=== PATIENT | female | born 2000 | race African-American/Black ===

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

== ENCOUNTER 2018-01-01 13:52 | Observation (INO) | payer OTHER | END 2018-01-01 15:30 | disposition home or self-care (01) | LOC: 3 SO LND 13:52 | DX: O26.892 Other specified pregnancy related conditions, second trimester (principal); R10.13 Epigastric pain; Z3A.21 21 weeks gestation of pregnancy | CPT/HCPCS: G0378; G0379 ==

== ENCOUNTER 2018-02-10 00:27 | Observation (INO) | payer OTHER ==
[2018-02-10] MEDS ORDERED: IV RINGERS,LACTATED 1000ML 1,000 ML IV (00:28)
[2018-02-10 00:57] LABS: BILIRUBIN,URINE NEGATIVE (NEG); CLARITY,URINE CLEAR; COLOR,URINE YELLOW; GLUCOSE,URINE NEGATIVE (NEG); NITRITE,URINE NEGATIVE (NEG); PROTEIN,URINE NEGATIVE (NEG-TRACE); UROBILINOGEN,URINE 0.2 mg/dL (0.2 mg/dL)
[2018-02-10 01:13] LABS: BACTERIA,URINE MODERATE /HPF (0-FEW); RBC,URINE RARE /HPF (0-2); SQUAMOUS EPITHELIAL CELL,UR MANY /LPF
[2018-02-10 01:14] LABS: BARBITURATES NEG (NEG); BENZODIAZEPINES NEG (NEG); CANNABINOIDS POS (NEG); COCAINE NEG (NEG); METHADONE NEG (NEG); OPIATES NEG (NEG); PHENCYCLIDINE NEG (NEG)
[2018-02-10 01:16] LABS: AMPHETAMINE/METHAMPHETAMINE NEG (NEG); ETHANOL, URINE NEG (NEG)
[2018-02-10] MEDS: ACETAMINOPHEN 500 MG TABLET PO (02:03)
== END 2018-02-10 02:00 | disposition home or self-care (01) ==
LOC: 3 SO LND 00:27
DX: O26.892 Other specified pregnancy related conditions, second trimester (principal); R10.2 Pelvic and perineal pain; Z3A.24 24 weeks gestation of pregnancy
CPT/HCPCS: 80307; 81001; 87086; G0378; G0379

== ENCOUNTER 2018-02-11 12:10 | Observation (INO) | payer OTHER ==
[2018-02-11] MEDS ORDERED: IV RINGERS,LACTATED 1000ML 1,000 ML IV (12:34)
[2018-02-11 12:52] LABS: BILIRUBIN,URINE NEGATIVE (NEG); CLARITY,URINE CLEAR; GLUCOSE,URINE NEGATIVE (NEG); NITRITE,URINE NEGATIVE (NEG); PROTEIN,URINE NEGATIVE (NEG-TRACE)
[2018-02-11 12:57] LABS: AMPHETAMINE/METHAMPHETAMINE NEG (NEG); BARBITURATES NEG (NEG); BENZODIAZEPINES NEG (NEG); CANNABINOIDS POS (NEG); COCAINE NEG (NEG); ETHANOL, URINE NEG (NEG); METHADONE NEG (NEG); OPIATES NEG (NEG); PHENCYCLIDINE NEG (NEG)
[2018-02-11 13:02] LABS: COLOR,URINE YELLOW
[2018-02-11 13:03] LABS: BACTERIA,URINE MANY /HPF (0-FEW); SQUAMOUS EPITHELIAL CELL,UR MANY /LPF
[2018-02-11 14:02] LABS: ADD MAN DIFF? NO
[2018-02-11 14:06] LABS: BASO % 0 % (0-3); EOS % 0 % (0-3); HEMATOCRIT 31.4 % (36.0-47.0); HEMOGLOBIN 10.9 g/dL (12.0-15.5); LYMPH # 2.4 x10^3/uL (1.0-4.8); LYMPH % 38 % (24-48); MEAN CORPUSCULAR HEMOGLOBIN 32 pg (25-35); MEAN CORPUSCULAR HGB CONC 35 g/dL (31-37); MEAN CORPUSCULAR VOLUME 93 fL (79-100); MONO # 0.6 x10^3/uL (0.0-1.1); MONO % 9 % (0-9); NEUT # 3.2 x10^3uL (1.8-7.7); NEUT % 52 % (31-73); PLATELET COUNT 198 x10^3/uL (140-400); RED BLOOD COUNT 3.37 x10^6/uL (3.50-5.40); RED CELL DISTRIBUTION WIDTH 13.4 % (11.5-14.5); WHITE BLOOD COUNT 6.2 x10^3/uL (4.0-11.0)
[2018-02-11] MEDS: ACETAMINOPHEN 500 MG TABLET PO (14:58)
== END 2018-02-11 15:42 | disposition home or self-care (01) ==
LOC: 3 SO LND 12:10
DX: O26.893 Other specified pregnancy related conditions, third trimester (principal); R10.9 Unspecified abdominal pain; Z3A.29 29 weeks gestation of pregnancy
CPT/HCPCS: 36415; 76815; 80307; 81001; 85025; 86850; 86900; 86901; 87086; G0378; G0379

== ENCOUNTER 2018-03-19 09:08 | Observation (INO) | payer OTHER ==
[2018-03-19] MEDS ORDERED: IV RINGERS,LACTATED 1000ML 1,000 ML IV (09:27)
[2018-03-19 10:00] LABS: BILIRUBIN,URINE NEGATIVE (NEG); CLARITY,URINE CLEAR; COLOR,URINE YELLOW; GLUCOSE,URINE NEGATIVE (NEG); NITRITE,URINE NEGATIVE (NEG); PH,URINE 6.5; PROTEIN,URINE NEGATIVE (NEG-TRACE); UROBILINOGEN,URINE 0.2 mg/dL (0.2 mg/dL)
[2018-03-19 10:25] LABS: BACTERIA,URINE FEW /HPF (0-FEW); RBC,URINE 0 /HPF (0-2); SQUAMOUS EPITHELIAL CELL,UR FEW /LPF
== END 2018-03-19 11:35 | disposition home or self-care (01) ==
LOC: 3 SO LND 09:08
DX: O46.93 Antepartum hemorrhage, unspecified, third trimester (principal); O26.893 Other specified pregnancy related conditions, third trimester; L29.9 Pruritus, unspecified; Z3A.31 31 weeks gestation of pregnancy
CPT/HCPCS: 81001; 87086; 87491; 87591; G0378; G0379

== ENCOUNTER 2018-03-19 11:38 | Emergency (ER) | payer OTHER ==
[2018-03-19 12:18] LABS: BILIRUBIN,URINE NEGATIVE (NEG); CLARITY,URINE CLEAR; COLOR,URINE YELLOW; GLUCOSE,URINE NEGATIVE (NEG); NITRITE,URINE NEGATIVE (NEG); PROTEIN,URINE NEGATIVE (NEG-TRACE); UROBILINOGEN,URINE 0.2 mg/dL (0.2 mg/dL)
[2018-03-19 12:32] LABS: BACTERIA,URINE MOD /HPF (0-FEW); SQUAMOUS EPITHELIAL CELL,UR FEW /LPF; WBC,URINE 20-40 /HPF (0-4)
[2018-03-19] MEDS: AZITHROMYCIN 250 MG TABLET. PO (13:19)
[2018-03-20 14:20] LABS: CHLAMYDIA PROBE Positive (Negative); GC PROBE Negative (Negative)
== END 2018-03-19 13:46 | disposition home or self-care (01) ==
LOC: ER 13:46
DX: B37.49 Other urogenital candidiasis (principal); F12.10 Cannabis abuse, uncomplicated; Z88.1 Allergy status to other antibiotic agents; Z88.4 Allergy status to anesthetic agent; Z88.8 Allergy status to other drugs, medicaments and biological substances; Z91.040 Latex allergy status
CPT/HCPCS: 81001; 87491; 87591; 99284; Q0111; Q0144

== ENCOUNTER 2018-05-13 16:17 | Observation (INO) | payer OTHER ==
[2018-03-19 12:09] VITALS: BP 98/69
[~2018-05-13 16:17] MED LIST: METR500T PO; MICO44CM VG; NITR100C62 PO
[2018-05-13 16:55] LABS: BILIRUBIN,URINE NEGATIVE (NEG); CLARITY,URINE CLEAR; COLOR,URINE YELLOW; NITRITE,URINE NEGATIVE (NEG); PROTEIN,URINE NEGATIVE (NEG-TRACE); UROBILINOGEN,URINE 0.2 mg/dL (0.2 mg/dL)
[2018-05-13 17:02] LABS: AMORPHOUS SEDIMENT,UR PRESENT /HPF; BACTERIA,URINE FEW /HPF (0-FEW); RBC,URINE 0 /HPF (0-2); SQUAMOUS EPITHELIAL CELL,UR MOD /LPF
== END 2018-05-13 17:24 | disposition home or self-care (01) ==
LOC: 3 SO LND 16:17
PROVIDERS: ADMIT Obstetrics & Gynecology; ATTEND Obstetrics & Gynecology
DX: O26.893 Other specified pregnancy related conditions, third trimester (principal); R10.31 Right lower quadrant pain; Z3A.37 37 weeks gestation of pregnancy
CPT/HCPCS: 81001; 87086; G0378; G0379

== ENCOUNTER 2019-03-09 10:04 | Emergency (ER) | payer OTHER ==
[~2019-03-09] VITALS: Ht 157.5 cm; Wt 75.7 kg
[2019-03-09 10:15] VITALS: BP 110/55
[2019-03-09] MEDS ORDERED: diphenhydrAMINE HCL 25 MG CAPSULE PO ONE (10:45)
[2019-03-09] MEDS ORDERED: predniSONE 10 MG TABLET PO ONE (10:45)
[2019-03-09] MEDS ORDERED: cefTRIAXone IM 250 MG VIAL IM ONE (10:45)
[2019-03-09] MEDS ORDERED: metroNIDAZOLE 500 MG TABLET PO ONE (10:45)
[2019-03-09] MEDS ORDERED: AZITHROMYCIN 250 MG TABLET. PO ONE (10:45)
[2019-03-09] MEDS ORDERED: FLUCONAZOLE 100 MG TABLET. PO ONE (11:00)
[2019-03-09 11:01] LABS: BILIRUBIN,URINE SMALL (NEG); CLARITY,URINE CLEAR; COLOR,URINE YELLOW; NITRITE,URINE NEGATIVE (NEG); PROTEIN,URINE NEGATIVE (NEG-TRACE); UROBILINOGEN,URINE 0.2 mg/dL (0.2 mg/dL)
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
[2019-03-09 11:23] LABS: SQUAMOUS EPITHELIAL CELL,UR FEW /LPF; WBC,URINE OCC /HPF (0-4)
[2019-03-09 11:53] LABS: BACTERIA,URINE 0 /HPF (0-FEW)
[2019-03-09] MEDS ORDERED: ONDANSETRON ODT 4 MG TAB.RAPDIS. PO ONE (12:00)
[2019-03-12 16:13] LABS: GC PROBE Negative (Negative)
== END 2019-03-09 12:09 | disposition home or self-care (01) ==
LOC: ER 10:04
DX: B37.3 Candidiasis of vulva and vagina (principal); Z20.2 Contact with and (suspected) exposure to infections with a predominantly sexual mode of transmission; Z88.1 Allergy status to other antibiotic agents; Z88.4 Allergy status to anesthetic agent; Z91.040 Latex allergy status
CPT/HCPCS: 81001; 81025; 87491; 87591; 96372; 99284; J0696; J7512; Q0111; Q0144; Q0162; Q0163

== ENCOUNTER 2019-10-07 13:21 | Emergency (ER) | payer OTHER ==
[~2019-10-07] VITALS: Ht 157.5 cm; Wt 81.6 kg
[2019-10-07 14:46] VITALS: BP 109/57
[2019-10-07] MEDS: DEXAMETHASONE 4 MG TABLET PO STA (15:24)
[2019-10-07] MEDS ORDERED: ONDA4TAB12 PO (15:42)
--- NOTE | 2019-10-07 15:42 | PHYS DOC ---
Past Medical History Past Medical History: No Pertinent History, STD Past Surgical History: No Surgical History Alcohol Use: None Drug Use: Marijuana Adult General Chief Complaint Chief Complaint: FLU SYMPTOM HPI HPI Patient is a 19 year old female who presents with headache, loss of appetite, nausea, vomiting, sore throat, runny nose, cough that started a little over 1 week ago. The patient rates her pain as 6 out of 10 in severity and sharp. Review of Systems Review of Systems Constitutional: Reports fever or chills and body aches. Eyes: Denies change in visual acuity, redness, or eye pain [] HENT: Reports nasal congestion, sore throat, and runny nose. Respiratory: Reports cough. Denies shortness of breath. Cardiovascular: No additional information not addressed in HPI [] GI: Reports nausea and vomiting. Denies abdominal pain, bloody stools or diarrhea [] : Denies dysuria or hematuria [] Musculoskeletal: Denies back pain or joint pain [] Integument: Denies rash or skin lesions [] Neurologic: Reports headache, denies focal weakness or sensory changes [] Endocrine: Denies polyuria or polydipsia [] Complete systems were reviewed and found to be within normal limits, except as documented in this note. Current Medications Current Medications Current Medications Medications (Trade) Dose Ordered Sig/Joshua Start Time Stop Time Status Last Admin Dose Admin Dexamethasone (Decadron) 10 mg 1X STAT 10/07/19 14:57 10/07/19 14:58 DC 10/07/19 15:24 10 MG Allergies Allergies Allergies Coded Allergies Type Severity Reaction Last Updated Verified amoxicillin Allergy Severe "MY NECK SWELLS" 01/08/17 Yes Latex, Natural Rubber Allergy Intermediate RASH 01/08/17 Yes procaine Allergy Intermediate SWELLING 05/29/14 Yes Physical Exam Physical Exam Constitutional: Well developed, well nourished, no acute distress, non-toxic appearance. [] HENT: Normocephalic, atraumatic, bilateral external ears normal, oropharynx moist, tonsils are 2+/4 with no oral exudates, nose normal. [] Eyes: PERRLA, EOMI, conjunctiva normal, no discharge. [] Neck: Normal range of motion, no tenderness, supple, no stridor. [] Cardiovascular:Heart rate regular rhythm, no murmur [] Lungs & Thorax: Bilateral breath sounds clear to auscultation [] Skin: Warm, dry, no erythema, no rash. [] Neurologic: Alert and oriented X 3, normal motor function, normal sensory function, no focal deficits noted. [] Psychologic: Affect normal, judgement normal, mood normal. [] Current Patient Data Vital Signs Vital Signs Date Time Temp Pulse Resp B/P (MAP) Pulse Ox O2 Delivery O2 Flow Rate FiO2 10/07/19 14:46 97.8 75 14 109/57 (74) 98 Room Air 97.8 EKG EKG [] Radiology/Procedures Radiology/Procedures [] Course & Med Decision Making Course & Med Decision Making Pertinent Labs and Imaging studies reviewed. (See chart for details) The patient appears to have the Flu clinically. Discussed with patient the importance of drinking plenty of fluids. I also discussed the importance of rest. It was discussed with the patient that she is contagious and to stay away from others until it has been a week since the start of her symptoms. Discussed with the patient that she can take Zyrtec per label instructions for runny nose. Also discussed the proper control of fever by rotating Tylenol and Ibuprofen at home. Will give the patient Decadron in the ER for symptom control. Will also prescribe Zofran for nausea. Strep was negative. Dragon Disclaimer Dragon Disclaimer This electronic medical record was generated, in whole or in part, using a voice recognition dictation system. Departure Departure Impression: Primary Impression: Viral syndrome Disposition: 01 HOME, SELF-CARE Condition: STABLE Referrals: NO PCP (PCP) Patient Instructions: Viral Syndrome Additional Instructions: Thank you for visiting [facility]. We appreciate you trusting us with your care. If any additional problems come up don't hesitate to return to visit us. Please follow up with your primary care provider so they can plan additional care if needed and know about the problem that you had. If symptoms worsen come back to the Emergency Department. Any concerning symptoms that start such as chest pain, shortness of air, weakness or numbness on one side of the body, running high fevers or any other concerning symptoms return to the ER. Please fill your medications at any pharmacy and follow the prescription instructions. Please drink plenty of fluids. If unable to keep fluids down please return to ER. Please get Tylenol and Ibuprofen over the counter. Give each medication every 6 hours as directed by the medication labels. In order to utilize the peak of the medications stagger the medications to where the child is getting one of the medications every 3 hours. For example if you give Ibuprofen at 3 PM, you then give Tylenol at 6 PM and Ibuprofen again at 9 PM, and then Tylenol at midnight. Please get Zyrtec over the counter and take per label instructions for runny nose. Scripts Ondansetron (ONDANSETRON ODT) 4 Mg Tab.rapdis 1 TAB PO PRN Q6-8HRS PRN for NAUSEA, #16 TAB Prov: SELMA TOLENTINO APRN 10/07/19 SELMA TOLENTINO APRN Oct 07, 2019 15:42
== END 2019-10-07 15:57 | disposition home or self-care (01) ==
LOC: ER 13:21
DX: B34.9 Viral infection, unspecified (principal); R11.2 Nausea with vomiting, unspecified; Z88.1 Allergy status to other antibiotic agents; Z88.4 Allergy status to anesthetic agent; Z91.040 Latex allergy status
CPT/HCPCS: 87070; 87880; 99283; J8540

== ENCOUNTER 2019-10-22 13:24 | Emergency (ER) | payer OTHER ==
[~2019-10-22] VITALS: Ht 157.5 cm; Wt 79.5 kg
[~2019-10-22 13:24] MED LIST changes: +ONDA4TAB12 PO
[2019-10-22 14:23] VITALS: BP 147/88
[2019-10-22 14:27] LABS: BILIRUBIN,URINE NEGATIVE (NEG); CLARITY,URINE CLOUDY; COLOR,URINE YELLOW; NITRITE,URINE NEGATIVE (NEG); PH,URINE 6.5; PROTEIN,URINE NEGATIVE (NEG-TRACE); UROBILINOGEN,URINE 0.2 mg/dL (0.2 mg/dL)
[2019-10-22 14:35] LABS: BACTERIA,URINE 0 /HPF (0-FEW); SQUAMOUS EPITHELIAL CELL,UR MOD /LPF
[2019-10-22] MEDS ORDERED: AZITHROMYCIN 250 MG TABLET. PO ONE (15:00)
[2019-10-22] MEDS ORDERED: cefTRIAXone IM 250 MG VIAL IM ONE (15:00)
[2019-10-22] MEDS ORDERED: MICO24CM5 VG (15:11)
--- NOTE | 2019-10-22 15:11 | PHYS DOC ---
Past Medical History Past Medical History: STD, Other Additional Past Medical Histor: ECZEMA Past Surgical History: No Surgical History Additional Information: BL[employer]DS Alcohol Use: None Drug Use: Marijuana Adult General Chief Complaint Chief Complaint: VAGINAL PROBLEM HPI HPI Patient is a 19 year old female who presents with history days ago she had intercourse and ever since and she's had an irritated vaginal area with itching and burning. She denies dysuria. States there is no smell. She is having white vaginal discharge. She states that she was like to be checked and treated for sexual transmitted diseases today. Review of Systems Review of Systems : Vaginal itching, irritation. Denies dysuria or hematuria [] All other systems were reviewed and found to be within normal limits, except as documented in this note. Current Medications Current Medications Current Medications Medications (Trade) Dose Ordered Sig/Joshua Start Time Stop Time Status Last Admin Dose Admin Azithromycin (Zithromax) 1,000 mg 1X ONCE 10/22/19 15:00 10/22/19 15:01 DC Ceftriaxone Sodium (Rocephin Im) 250 mg 1X ONCE 10/22/19 15:00 10/22/19 15:01 DC Allergies Allergies Allergies Coded Allergies Type Severity Reaction Last Updated Verified amoxicillin Allergy Severe "MY NECK SWELLS" 10/22/19 Yes Latex, Natural Rubber Allergy Intermediate RASH 01/08/17 Yes procaine Allergy Intermediate SWELLING 05/29/14 Yes Physical Exam Physical Exam Constitutional: Well developed, well nourished, no acute distress, non-toxic appearance. [] HENT: Normocephalic, atraumatic, bilateral external ears normal, oropharynx moist, no oral exudates, nose normal. [] Eyes: PERRLA, EOMI, conjunctiva normal, no discharge. [] Neck: Normal range of motion, no tenderness, supple, no stridor. [] Cardiovascular:Heart rate regular rhythm, no murmur [] Lungs & Thorax: Bilateral breath sounds clear to auscultation [] Abdomen: Bowel sounds normal, soft, no tenderness, no masses, no pulsatile masses. [] Skin: Warm, dry, vaginal mucosa erythema or irritation, no rash. [] Back: No tenderness, no CVA tenderness. [] Extremities: No tenderness, no cyanosis, no clubbing, ROM intact, no edema. [] Neurologic: Alert and oriented X 3, normal motor function, normal sensory function, no focal deficits noted. [] Psychologic: Affect normal, judgement normal, mood normal. [] Current Patient Data Vital Signs Vital Signs Date Time Temp Pulse Resp B/P (MAP) Pulse Ox O2 Delivery O2 Flow Rate FiO2 10/22/19 14:23 98.2 86 18 147/88 (107) 96 Room Air 98.2 Lab Values Laboratory Tests Test 10/22/19 14:18 10/22/19 14:19 Urine Collection Type Unknown Urine Color Yellow Urine Clarity Cloudy Urine pH 6.5 Urine Specific [place] 1.025 Urine Protein Negative mg/dL (NEG-TRACE) Urine Glucose (UA) Negative mg/dL (NEG) Urine Ketones (Stick) Negative mg/dL (NEG) Urine Blood Negative (NEG) Urine Nitrite Negative (NEG) Urine Bilirubin Negative (NEG) Urine Urobilinogen Dipstick 0.2 mg/dL (0.2 mg/dL) Urine Leukocyte Esterase Small (NEG) Urine RBC 1-2 /HPF (0-2) Urine WBC 1-4 /HPF (0-4) Urine Squamous Epithelial Cells Mod /LPF Urine Bacteria 0 /HPF (0-FEW) Urine Mucus Mod /LPF POC Urine HCG, Qualitative Hcg negative (Negative) Microbiology 10/22/19 Wet Prep - Final, Complete EKG EKG [] Radiology/Procedures Radiology/Procedures [] Course & Med Decision Making Course & Med Decision Making Alert and oriented. Speaks in full conditions. Vital signs within normal limits. Abdomen soft and nontender. Skin pink warm and dry. Patient refuses azithromycin and Rocephin. Pelvic Exam: Merchandise Presentation Manager present Abdomen: Nontender External Genitalia: Normal Skin, some redness or irritation Speculum: Normal vaginal mucosa, White cervical discharge Bimanual: No adnexal masses or tenderness, No CMT Dragon Disclaimer Dragon Disclaimer This electronic medical record was generated, in whole or in part, using a voice recognition dictation system. Departure Departure Impression: Primary Impression: Vaginal yeast infection Disposition: 01 HOME, SELF-CARE Condition: STABLE Referrals: NO PCP (PCP) Patient Instructions: Medical Screening Exam Additional Instructions: Take medication as prescribed. Follow up with a political science faculty member or primary care if needed. Scripts Miconazole Nitrate (MONISTAT 3) 24 Gm Cmb.pf.crm 1 APPFUL VG QHS for 3 Days, #24 GM 0 Refills Prov: GERRY CAMPUZANO APRN 10/22/19 GERRY CAMPUZANO APRN Oct 22, 2019 15:11
[2019-10-23 19:09] LABS: GC PROBE Negative (Negative)
== END 2019-10-22 15:32 | disposition home or self-care (01) ==
LOC: ER 13:24
DX: N76.0 Acute vaginitis (principal); B96.89 Other specified bacterial agents as the cause of diseases classified elsewhere; L29.2 Pruritus vulvae; F12.90 Cannabis use, unspecified, uncomplicated; F17.200 Nicotine dependence, unspecified, uncomplicated; Z88.1 Allergy status to other antibiotic agents; Z91.040 Latex allergy status; Z88.4 Allergy status to anesthetic agent
CPT/HCPCS: 81001; 81025; 87086; 87491; 87591; 99284; Q0111

== ENCOUNTER 2020-03-04 19:11 | Emergency (ER) | payer SELFPAY ==
[~2020-03-04] VITALS: Ht 157.5 cm; Wt 81.8 kg
[~2020-03-04 19:11] MED LIST changes: +MICO24CM5 VG
[2020-03-04 19:16] VITALS: BP 132/77
[2020-03-04 20:15] LABS: BILIRUBIN,URINE NEGATIVE (NEG); CLARITY,URINE CLEAR; COLOR,URINE YELLOW; NITRITE,URINE NEGATIVE (NEG); PROTEIN,URINE 30 mg/dL (NEG-TRACE); UROBILINOGEN,URINE 0.2 mg/dL (0.2 mg/dL)
[2020-03-04] MEDS ORDERED: ACETAMINOPHEN 500 MG TABLET PO ONE (20:15)
[2020-03-04 20:20] LABS: SQUAMOUS EPITHELIAL CELL,UR MOD /LPF
[2020-03-04 20:21] LABS: BACTERIA,URINE FEW /HPF (0-FEW)
[2020-03-04] MEDS ORDERED: IV NORMAL SALINE 1000ML BAG 1,000 ML IV SCH (20:21)
[2020-03-04 20:25] LABS: YEAST,URINE PRESENT /HPF
[2020-03-04] MEDS ORDERED: KETOROLAC 30 MG/ML VIAL. IVP ONE (20:30)
[2020-03-04 20:58] LABS: BASO # 0.1 x10^3/uL (0.0-0.2); BASO % 1 % (0-3); EOS % 0 % (0-3); HEMATOCRIT 38.6 % (36.0-47.0); LYMPH # 1.9 x10^3/uL (1.0-4.8); LYMPH % 19 % (24-48); MEAN CORPUSCULAR HEMOGLOBIN 31 pg (25-35); MEAN CORPUSCULAR HGB CONC 34 g/dL (31-37); MEAN CORPUSCULAR VOLUME 91 fL (79-100); MONO # 1.2 x10^3/uL (0.0-1.1); MONO % 12 % (0-9); NEUT # 6.7 x10^3/uL (1.8-7.7); NEUT % 68 % (31-73); PLATELET COUNT 225 x10^3/uL (140-400); RED BLOOD COUNT 4.24 x10^6/uL (3.50-5.40); RED CELL DISTRIBUTION WIDTH 13.8 % (11.5-14.5); WHITE BLOOD COUNT 9.8 x10^3/uL (4.0-11.0)
[2020-03-04 21:06] LABS: CALCIUM 8.8 mg/dL (8.5-10.1); GFR 84.7; POTASSIUM 4.3 mmol/L (3.5-5.1)
[2020-03-04 21:12] LABS: ALBUMIN 3.3 g/dL (3.4-5.0); ALBUMIN/GLOBULIN RATIO 0.7 (1.0-1.7); TOTAL BILIRUBIN 0.3 mg/dL (0.2-1.0); TOTAL PROTEIN 8.1 g/dL (6.4-8.2)
[2020-03-04] MEDS ORDERED: FLUCONAZOLE 100 MG TABLET. PO ONE (21:15)
[2020-03-04] MEDS ORDERED: AZIT250T PO (21:23)
[2020-03-04] MEDS ORDERED: FLUC150T PO (21:23)
--- NOTE | 2020-03-04 21:23 | PHYS DOC ---
Past Medical History Past Medical History: STD, Other Additional Past Medical Histor: ECZEMA,TONSILLS,BV Past Surgical History: No Surgical History Smoking Status: Current Every Day Smoker Alcohol Use: None Drug Use: Marijuana General Adult EDM: Chief Complaint: SORE THROAT HPI: HPI: Patient is a 19 year old female who presents with complaint of 4-day history of sore throat and also vaginal discharge with itching for the last week. Patient states the discharge is white in color and clumpy. She denies any chest pain or shortness of breath. Patient is not aware of any fever. Patient states that it is very painful to swallow and states that she sees white spots on her tonsils. [] Review of Systems: Review of Systems: Constitutional: Denies fever or chills. [] HENT: Complains of sore throat. [] Respiratory: Denies cough or shortness of breath. [] Cardiovascular: Denies chest pain or edema. [] : Denies dysuria. Complains of white clumpy vaginal discharge [] Integument: Denies rash. [] Neurologic: Denies headache, focal weakness or sensory changes. [] Heart Score: Risk Factors: Risk Factors: DM, Current or recent (<one month) smoker, HTN, HLP, family history of CAD, obesity. Risk Scores: Score 0 - 3: 2.5% MACE over next 6 weeks - Discharge Home Score 4 - 6: 20.3% MACE over next 6 weeks - Admit for Clinical Observation Score 7 - 10: 72.7% MACE over next 6 weeks - Early Invasive Strategies Current Medications: Current Medications Medications (Trade) Dose Ordered Sig/[facility] Start Time Stop Time Status Last Admin Dose Admin Acetaminophen (Tylenol) 1,000 mg 1X ONCE 03/04/20 20:15 03/04/20 20:16 DC 03/04/20 20:22 1,000 MG Ceftriaxone Sodium (Rocephin) 1 gm 1X ONCE 03/04/20 21:15 03/04/20 21:16 UNV Fluconazole (Diflucan) 150 mg 1X ONCE 03/04/20 21:15 03/04/20 21:16 UNV Ketorolac Tromethamine (Toradol 30mg Vial) 30 mg 1X ONCE 03/04/20 20:30 03/04/20 20:31 DC 03/04/20 20:54 30 MG Sodium Chloride 1,000 ml @ 1,000 mls/hr Q1H 03/04/20 20:21 03/04/20 21:20 03/04/20 20:54 1,000 MLS/HR Allergies: Allergies: Allergies Coded Allergies Type Severity Reaction Last Updated Verified amoxicillin Allergy Severe "MY NECK SWELLS" 10/22/19 Yes Latex, Natural Rubber Allergy Intermediate RASH 01/08/17 Yes procaine Allergy Intermediate SWELLING 05/29/14 Yes Physical Exam: PE: Constitutional: Well developed, well nourished, no acute distress, non-toxic appearance. [] HENT: Normocephalic, atraumatic, bilateral external ears normal, there is pharyngeal erythema with tonsillar swelling and exudates bilaterally. [] Cardiovascular: Regular rate and rhythm [] Lungs & Thorax: Bilateral breath sounds clear to auscultation [] Skin: Warm, dry, no erythema, no rash. [] Neurologic: Alert and oriented X 3, normal motor function, normal sensory function, no focal deficits noted. [] Current Patient Data: Labs: Laboratory Tests Test 03/04/20 19:40 03/04/20 19:45 03/04/20 20:50 Urine Collection Type Unknown Urine Color Yellow Urine Clarity Clear Urine pH 6.0 (<5.0-8.0) Urine Specific [place] 1.020 (1.000-1.030) Urine Protein 30 mg/dL (NEG-TRACE) Urine Glucose (UA) Negative mg/dL (NEG) Urine Ketones (Stick) Negative mg/dL (NEG) Urine Blood Moderate (NEG) Urine Nitrite Negative (NEG) Urine Bilirubin Negative (NEG) Urine Urobilinogen Dipstick 0.2 mg/dL (0.2 mg/dL) Urine Leukocyte Esterase Small (NEG) Urine RBC 11-20 /HPF (0-2) Urine WBC 11-20 /HPF (0-4) Urine Squamous Epithelial Cells Mod /LPF Urine Bacteria Few /HPF (0-FEW) Urine Mucus Marked /LPF Urine Yeast Present /HPF POC Urine HCG, Qualitative Hcg negative (Negative) White Blood Count 9.8 x10^3/uL (4.0-11.0) Red Blood Count 4.24 x10^6/uL (3.50-5.40) Hemoglobin 13.0 g/dL (12.0-15.5) Hematocrit 38.6 % (36.0-47.0) Mean Corpuscular Volume 91 fL (79-100) Mean Corpuscular Hemoglobin 31 pg (25-35) Mean Corpuscular Hemoglobin Concent 34 g/dL (31-37) Red Cell Distribution Width 13.8 % (11.5-14.5) Platelet Count 225 x10^3/uL (140-400) Neutrophils (%) (Auto) 68 % (31-73) Lymphocytes (%) (Auto) 19 % (24-48) L Monocytes (%) (Auto) 12 % (0-9) H Eosinophils (%) (Auto) 0 % (0-3) Basophils (%) (Auto) 1 % (0-3) Neutrophils # (Auto) 6.7 x10^3/uL (1.8-7.7) Lymphocytes # (Auto) 1.9 x10^3/uL (1.0-4.8) Monocytes # (Auto) 1.2 x10^3/uL (0.0-1.1) H Eosinophils # (Auto) 0.0 x10^3/uL (0.0-0.7) Basophils # (Auto) 0.1 x10^3/uL (0.0-0.2) Sodium Level 136 mmol/L (136-145) Potassium Level 4.3 mmol/L (3.5-5.1) Chloride Level 101 mmol/L (98-107) Carbon Dioxide Level 25 mmol/L (21-32) Anion Gap 10 (6-14) Blood Urea Nitrogen 7 mg/dL (7-20) Creatinine 1.0 mg/dL (0.6-1.0) Estimated GFR (Cockcroft-Gault) 84.7 BUN/Creatinine Ratio 7 (6-20) Glucose Level 85 mg/dL (70-99) Calcium Level 8.8 mg/dL (8.5-10.1) Total Bilirubin 0.3 mg/dL (0.2-1.0) Aspartate Amino Transferase (AST) 18 U/L (15-37) Alanine Aminotransferase (ALT) 11 U/L (14-59) L Alkaline Phosphatase 81 U/L (46-116) Total Protein 8.1 g/dL (6.4-8.2) Albumin 3.3 g/dL (3.4-5.0) L Albumin/Globulin Ratio 0.7 (1.0-1.7) L Laboratory Tests 03/04/20 20:50 Laboratory Tests 03/04/20 20:50 Vital Signs: Vital Signs Date Time Temp Pulse Resp B/P (MAP) Pulse Ox O2 Delivery O2 Flow Rate FiO2 03/04/20 19:16 102.8 86 22 132/77 (95) 99 Room Air 102.8 EKG: EKG: [] Radiology/Procedures: Radiology/Procedures: [] Course & Med Decision Making: Course & Med Decision Making Pertinent Labs and Imaging studies reviewed. (See chart for details) [] Dragon Disclaimer: DragEtaoshi Disclaimer: This electronic medical record was generated, in whole or in part, using a voice recognition dictation system. Departure Departure Impression: Primary Impression: Tonsillitis Additional Impression: Vaginal yeast infection Disposition: 01 HOME, SELF-CARE Condition: STABLE Referrals: NO PCP (PCP) Patient Instructions: Tonsillitis, Vaginitis, Monilial Scripts Fluconazole (DIFLUCAN) 150 Mg Tablet 1 TAB PO ONCE, #1 TAB Prov: ADEN LENZ Jr. DO 03/04/20 Azithromycin (ZITHROMAX) 250 Mg Tablet 1 PKG PO UD, #6 TAB Prov: ADEN LENZ Jr. DO 03/04/20 ADEN LENZ Jr. DO Mar 04, 2020 21:23
[2020-03-04] MEDS ORDERED: cefTRIAXone IV Push 1 GM VIAL. IVP ONE (21:30)
== END 2020-03-04 21:55 | disposition home or self-care (01) ==
LOC: ER 19:11
DX: J03.90 Acute tonsillitis, unspecified (principal); B37.3 Candidiasis of vulva and vagina; F17.200 Nicotine dependence, unspecified, uncomplicated; Z88.1 Allergy status to other antibiotic agents; Z88.4 Allergy status to anesthetic agent; Z91.040 Latex allergy status
CPT/HCPCS: 36415; 80053; 81001; 81025; 85025; 87070; 87086; 87880; 96374; 96375; 99284; J0696; J1885; J7030

== ENCOUNTER 2021-03-20 21:15 | Emergency (ER) | payer OTHER ==
[~2021-03-20] VITALS: Ht 157.5 cm; Wt 90.9 kg
[~2021-03-20 21:15] MED LIST changes: +AZIT250T PO; +FLUC150T PO
[2021-03-20 22:25] LABS: BILIRUBIN,URINE NEGATIVE (NEG); CLARITY,URINE CLEAR; COLOR,URINE YELLOW; NITRITE,URINE NEGATIVE (NEG); PH,URINE 5.5 (<5.0-8.0); PROTEIN,URINE NEGATIVE (NEG-TRACE); UROBILINOGEN,URINE 0.2 mg/dL (0.2 mg/dL)
--- NOTE | 2021-03-20 22:28 | EKG ---
[facility] [address] [place] [address] Test Date: 2021-03-20 Test Time: 21:35:23 Pat Name: MAGALY PALMER Department: Room: Gender: F Crosscutter: : 2000 Requested By: INA LITTLE Order Number: [id number] Reading MD: Measurements Intervals [place] Rate: 88 P: 0 HI: 174 QRS: 46 QRSD: 90 T: 22 QT: 342 QTc: 417 Interpretive Statements SINUS RHYTHM NORMAL ECG RI6.02 No previous ECG available for comparison
[2021-03-20 22:32] LABS: BACTERIA,URINE 0 /HPF (0-FEW); WBC,URINE 0 /HPF (0-4)
[2021-03-20 22:48] VITALS: BP 116/57
[2021-03-20] MEDS ORDERED: AZIT250T PO (22:52)
--- NOTE | 2021-03-20 22:53 | PHYS DOC ---
Past Medical History Past Medical History: STD, Other Additional Past Medical Histor: ECZEMA,TONSILLS,BV Past Surgical History: No Surgical History Smoking Status: Current Every Day Smoker Alcohol Use: None Drug Use: Marijuana General Adult EDM: Chief Complaint: MULTIPLE COMPLAINTS HPI: HPI: Patient is a 20 year old female presents with a chief complaint of sinus congestion with cough and sputum production. Patient states she has some chest discomfort with her cough. Symptoms started today. Patient also complains of vaginal spotting. Patient is on control and has not had a regular. For 2 years. On exam patient is in no acute distress oxygen saturation is 100%. Review of Systems: Review of Systems: Review of systems: Constitutional symptoms- No fever, no chills. Eyes- No Discharge, No Visual Loss Respiratory symptoms- No shortness of breath, No wheezing, No Dyspnea on Exertion positive cough Cardiovascular Systems; No chest pain, No Palpitations, No syncope Gastrointestinal symptoms: NO abdominal pain, no nausea, no vomiting or diarrhea. Genitourinary symptoms: No dysuria. Musculoskeletal symptoms: No back pain No extremity pain. NEUROLOGICAL Symptoms: Positive headache, no generalized weakness; No focal Weakness Skin: No rash. Heart Score: C/O Chest Pain: N/A Risk Factors: Risk Factors: DM, Current or recent (<one month) smoker, HTN, HLP, family history of CAD, obesity. Risk Scores: Score 0 - 3: 2.5% MACE over next 6 weeks - Discharge Home Score 4 - 6: 20.3% MACE over next 6 weeks - Admit for Clinical Observation Score 7 - 10: 72.7% MACE over next 6 weeks - Early Invasive Strategies Current Medications: Current Medications Medications (Trade) Dose Ordered Sig/[facility] Start Time Stop Time Status Last Admin Dose Admin Acetaminophen (Tylenol) 650 mg 1X ONCE 03/20/21 23:00 03/20/21 23:01 Allergies: Allergies: Allergies Coded Allergies Type Severity Reaction Last Updated Verified amoxicillin Allergy Severe "MY NECK SWELLS" 10/22/19 Yes Latex, Natural Rubber Allergy Intermediate RASH 01/08/17 Yes procaine Allergy Intermediate SWELLING 05/29/14 Yes Physical Exam: PE: General: alert, no acute distress. Skin: warm, dry and intact. HENT: bilateral external ears normal, oropharynx moist, nose normal. Head:: Normocephalic, atraumatic. Neck: Trachea midline. Eyes: EOMI, Normal conjunctiva, No drainage CARDIOVASCULAR: Regular rate and rhythm RESPIRATORY: No respiratory distress Back: Full range of motion. Skin: Warm, dry, no erythema, no rash. MUSCULOSKELETAL: Full range of motion of bilateral upper and lower extremities. GASTROINTESTINAL: Abdomen soft without rebound or guarding. NEUROLOGICAL: Alert and noted to person, place and time. No neurological deficits observed Psychiatric: Cooperative. Normal judgment Current Patient Data: Labs: Laboratory Tests Test 03/20/21 22:09 03/20/21 22:14 Urine Collection Type Unknown Urine Color Yellow Urine Clarity Clear Urine pH 5.5 (<5.0-8.0) Urine Specific [place] 1.020 (1.000-1.030) Urine Protein Negative mg/dL (NEG-TRACE) Urine Glucose (UA) Negative mg/dL (NEG) Urine Ketones (Stick) Negative mg/dL (NEG) Urine Blood Moderate (NEG) Urine Nitrite Negative (NEG) Urine Bilirubin Negative (NEG) Urine Urobilinogen Dipstick 0.2 mg/dL (0.2 mg/dL) Urine Leukocyte Esterase Negative (NEG) Urine RBC 3-5 /HPF (0-2) Urine WBC 0 /HPF (0-4) Urine Squamous Epithelial Cells Mod /LPF Urine Bacteria 0 /HPF (0-FEW) Urine Mucus Slight /LPF POC Urine HCG, Qualitative Hcg negative (Negative) Vital Signs: Vital Signs Date Time Temp Pulse Resp B/P (MAP) Pulse Ox O2 Delivery O2 Flow Rate FiO2 03/20/21 22:00 98.6 94 14 132/83 (99) 98 Room Air 98.6 EKG: EKG: [] Radiology/Procedures: Radiology/Procedures: [] Course & Med Decision Making: Course & Med Decision Making Pertinent Labs and Imaging studies reviewed. (See chart for details) [] Based upon history of present illness and physical exam no emergent work-up indicated. Patient symptoms consistent with upper respiratory infection. Patient's urine without signs of infection patient is not . Treatment in the ER included Tylenol. Patient discharged home on Zithromax. [place] Disclaimer: Debbi Disclaimer: This electronic medical record was generated, in whole or in part, using a voice recognition dictation system. Departure Departure Impression: Primary Impression: Upper respiratory infection Additional Impression: Vaginal spotting Disposition: HOME / SELF CARE / HOMELESS Condition: STABLE Referrals: NO PCP (PCP) Patient Instructions: Abnormal Uterine Bleeding, Upper Respiratory Infection, Adult Scripts Azithromycin (ZITHROMAX) 250 Mg Tablet 1 PKG PO UD, #6 TAB Prov: INA LITTLE DO 03/20/21 INA LITTLE DO Mar 20, 2021 22:53
[2021-03-20] MEDS ORDERED: ACETAMINOPHEN 325 MG TABLET. PO ONE (23:00)
== END 2021-03-20 23:02 | disposition home or self-care (01) ==
LOC: ER 21:15
DX: J06.9 Acute upper respiratory infection, unspecified (principal); N93.9 Abnormal uterine and vaginal bleeding, unspecified; F17.200 Nicotine dependence, unspecified, uncomplicated; Z88.1 Allergy status to other antibiotic agents; Z91.040 Latex allergy status; Z88.4 Allergy status to anesthetic agent
CPT/HCPCS: 81001; 81025; 93005; 99284

== ENCOUNTER 2021-03-24 16:02 | Emergency (ER) | payer OTHER | END 2021-03-24 17:30 | disposition left against medical advice (07) | LOC: ER 16:02 | DX: R43.8 Other disturbances of smell and taste (principal); Z53.21 Procedure and treatment not carried out due to patient leaving prior to being seen by health care provider ==